=== PATIENT | male | born 1985 | race Caucasian/White ===

== ENCOUNTER 2018-02-27 12:15 | Day surgery (SDC) | payer MEDICARE, MEDICAID ==
[2018-02-27] VITALS (8 sets, daily range): BP systolic 108–141; BP diastolic 58–86; PULSE 87–112; TEMP 98.3
[~2018-02-27] VITALS: Ht 172.7 cm; Wt 81.2 kg
[2018-02-27] MEDS ORDERED: MOTRIN 600600 MG/TAB PO (16:15)
[2018-02-27] MEDS ORDERED: COLACE 100100 MG/CAP PO (16:15)
[2018-02-27] MEDS ORDERED: NORCO 325 MG-51 TAB PO (16:15)
== END 2018-02-27 20:15 | disposition home or self-care (01) ==
LOC: SDCO 12:15 → SURG 17:10 → SDCO 20:15
DX: K40.90 Unilateral inguinal hernia, without obstruction or gangrene, not specified as recurrent (principal); D17.6 Benign lipomatous neoplasm of spermatic cord; E78.00 Pure hypercholesterolemia, unspecified; J45.909 Unspecified asthma, uncomplicated; F32.9 Major depressive disorder, single episode, unspecified; F17.210 Nicotine dependence, cigarettes, uncomplicated; Z80.1 Family history of malignant neoplasm of trachea, bronchus and lung; Z82.3 Family history of stroke; Z84.1 Family history of disorders of kidney and ureter; Z83.3 Family history of diabetes mellitus
CPT/HCPCS: OP; C1781; J0690; J1100; J1170; J1885; J2175; J2405; J2704; J2710; J3010; J7120